=== PATIENT | female | born 1980 | race Caucasian/White ===

== ENCOUNTER 2016-06-22 14:34 | Outpatient (CLI) | payer BC ==
[2016-06-22 15:28] LABS: AMNISURE (ROM) NEGATIVE (NEGATIVE)
[2016-06-22 16:38] LABS: APPEARANCE,URINE CLEAR; BILIRUBIN,URINE NEGATIVE (NEGATIVE); GLUCOSE, URINE NEGATIVE (NEGATIVE); KETONES,URINE NEGATIVE (NEGATIVE); LEUKOCYTE ESTERASE,URINE NEGATIVE (NEGATIVE); NITRITE,URINE NEGATIVE (NEGATIVE); PROTEIN,URINE NEGATIVE (NEGATIVE); URINE SPECIFIC GRAVITY 1.004; UROBILINOGEN,URINE NEGATIVE mg/dL (<2.0)
[2016-06-22 16:51] LABS: URINE BARBITURATES SCREEN NEGATIVE; URINE METHADONE SCREEN NEGATIVE; URINE OPIATES LOW NEGATIVE; URINE PHENCYCLIDINE SCREEN NEGATIVE
== END 2016-06-22 16:34 | disposition home or self-care (01) ==
LOC: LC 14:34
PROVIDERS: ATTEND Student in an Organized Health Care Education/Training Program
PROC: 4A1HXCZ Monitoring of Products of Conception, Cardiac Rate, External Approach (ICD-10-PCS; principal; 2016-06-22)
DX: O09.523 Supervision of elderly multigravida, third trimester (principal); Z3A.34 34 weeks gestation of pregnancy
CPT/HCPCS: 59025; 80307; 81001; 84112; 87210

== ENCOUNTER 2016-06-29 11:40 | Outpatient (CLI) | payer BC | END 2016-06-29 12:15 | disposition home or self-care (01) | LOC: LC 11:40 | PROVIDERS: ATTEND Obstetrics & Gynecology | DX: O36.8130 Decreased fetal movements, third trimester, not applicable or unspecified (principal); Z3A.35 35 weeks gestation of pregnancy | CPT/HCPCS: 59025 ==

== ENCOUNTER 2016-08-05 06:02 | Inpatient (IN) | payer BC ==
[2016-08-05] MEDS ORDERED: RINGERS SOLUTION,LACTATED 300 ML IV ONE (06:19)
[2016-08-05] MEDS ORDERED: OXYTOCIN/NORMAL SALINE 1,000 ML IV PRN (06:19)
[2016-08-05 06:37] LABS: APPEARANCE,URINE SLIGHTLY-CLOUDY; BILIRUBIN,URINE NEGATIVE (NEGATIVE); GLUCOSE, URINE NEGATIVE (NEGATIVE); KETONES,URINE NEGATIVE (NEGATIVE); LEUKOCYTE ESTERASE,URINE TRACE (NEGATIVE); NITRITE,URINE NEGATIVE (NEGATIVE); PROTEIN,URINE NEGATIVE (NEGATIVE); URINE SPECIFIC GRAVITY 1.013; UROBILINOGEN,URINE NEGATIVE mg/dL (<2.0)
[2016-08-05 06:50] LABS: ABSOLUTE EOSINOPHILS # (AUTO) 0.1 10^3/uL (0.0-0.6); ABSOLUTE LYMPHOCYTES (AUTO) 1.6 10^3/uL (0.5-4.7); ABSOLUTE MONOCYTES (AUTO) 0.7 10^3/uL (0.1-1.4); BASOPHILS % (AUTO) 0.3 % (0-2); HEMATOCRIT 37.1 % (36.0-47.0); HEMOGLOBIN 12.2 g/dL (12.0-15.5); HGB HCT DIFFERENCE -0.5; LYMPHOCYTES % (AUTO) 18.6 % (13-45); MEAN CORPUSCULAR HEMOGLOBIN 31.1 pg (27.0-33.4); MEAN CORPUSCULAR HGB CONC 32.9 g/dL (32.0-36.0); MEAN CORPUSCULAR VOLUME 95 fl (80-97); MONOCYTES % (AUTO) 7.8 % (3-13); RED BLOOD COUNT 3.93 10^6/uL (3.72-5.28); SEGMENTED NEUTROPHILS % (AUTO) 72.3 % (42-78); WHITE BLOOD COUNT 8.3 10^3/uL (4.0-10.5)
[2016-08-05 06:51] LABS: URINE BARBITURATES SCREEN NEGATIVE; URINE METHADONE SCREEN NEGATIVE; URINE OPIATES LOW NEGATIVE; URINE PHENCYCLIDINE SCREEN NEGATIVE
[2016-08-05] MEDS ORDERED: PENICILLIN G POTASSIUM 5,000,000 UNIT in DEXTROSE 5%-WATER 100 ML IV ONE (07:00)
[2016-08-05] MEDS ORDERED: OXYTOCIN/NORMAL SALINE 20 UNIT/1,000 ML RTUINJ ONE (07:19)
--- NOTE | 2016-08-05 08:25 | L&D Progress Notes ---
PROGRESS NOTES Datetime Report Generated by CPN: 08/05/2016 08:25 PROGRESS NOTE Impression: Reassuring Heart Rate Impression Other: polyhydramnios Plan: Continue Present Management; Induction Informed Consent Obtained: Vaginal Delivery; Induction of Labor Vital Signs : Reviewed Comment: Comfortable, Cat 1 strip. irreg uc's Comment: 36 yo pt sent from office for possible SROM Phx- anxiety abdomen soft 130s average variability- reactive nst amnisure negative speculum exam - wet prep obtained MEMBRANES Membranes: Intact FETUS A FHR - Baseline: 130 Monitoring: External US Monitoring: External US Variability: Moderate 6-25bpm Accelerations: 15X15 Accelerations: 15X15 FHR Category: Category I : 40.5 Presentation: Vertex SIGNATURE SIGNATURE: [id number];14,[id number] SIGNATURE: [id number] Assignment: Ronaldo Hickey DO Signature: with User ID: [email or web address] : with User ID: [email or web address]
[2016-08-05] MEDS: PENICILLIN G POTASSIUM 2,500,000 UNIT in DEXTROSE 5%-WATER 50 ML IV SCH ×3 (11:00→21:20)
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
[2016-08-05] MEDS ORDERED: PENICILLIN G-K 5 MILLION UNIT VIAL ONE ×3 (13:20→21:15)
[2016-08-05] MEDS ORDERED: EPHEDRINE SULFATE INJ 50 MG/1 ML AMPULE ONE (15:19)
[2016-08-05] MEDS ORDERED: FENTANYL/BUPIVACAINE/NS/PF 200 MCG/100 ML RTUINJ EPI ONE (15:20)
[2016-08-05] MEDS ORDERED: BUPIVACAINE HCL 0.25 % INJ/PF (2.5 MG/1 ML) 30 ML VIAL ONE (15:20)
--- NOTE | 2016-08-05 19:32 | L&D Progress Notes ---
PROGRESS NOTES Datetime Report Generated by CPN: 08/05/2016 19:32 PROGRESS NOTE Impression: Reassuring Heart Rate Procedures: Intrauterine Pressure Catheter Plan: Continue Present Management; Induction Informed Consent Obtained: Vaginal Delivery; Risks, Benefits and Alternatives Discussed Vital Signs : Reviewed Comment: pt doing well after epidural placement FHts reassuring abdomen nontender cervix 4.80/-1 bloody show pitocin at 10 milliunits/min plan of care reviewed anticipate FETUS A FHR - Baseline: 140 Variability: Moderate 6-25bpm Accelerations: 15X15 Decelerations: None FHR Category: Category I FETUS C SIGNATURE: [id number];14,[id number] Assignment: Ronaldo Hickey DO Signature: with User ID: [email or web address] : with User ID: [email or web address]
[2016-08-05] MEDS: RINGERS SOLUTION,LACTATED 1,000 ML IV PRN (21:10)
--- NOTE | 2016-08-05 22:59 | L&D Progress Notes ---
PROGRESS NOTES Datetime Report Generated by CPN: 08/05/2016 22:59 PROGRESS NOTE Comment: update 35 yo here for induction secondary to polyhydramnios EDC 07/31/2016 EGA [address] MVUs 185 noted late decelerations x 2- pt repositioned to left lateral with hiproll +scalp stimulation with accelerations guarded delivery reviewed with pt continue gbs prophylaxis VAGINAL EXAM Dilatation: 6 Effacement: 80 Station: 0 FETUS A FHR - Baseline: 120 Monitoring: External US Variability: Moderate 6-25bpm FETUS C SIGNATURE: [id number];10,[id number] Assignment: Ronaldo Hickey DO Signature: with User ID: [email or web address] : with User ID: [email or web address]
[2016-08-06] MEDS ORDERED: FENTANYL/BUPIVACAINE/NS/PF 200 MCG/100 ML RTUINJ EPI ONE (00:19)
[2016-08-06] MEDS ORDERED: PENICILLIN G-K 5 MILLION UNIT VIAL ONE ×2 (01:07→05:06)
[2016-08-06] MEDS: PENICILLIN G POTASSIUM 2,500,000 UNIT in DEXTROSE 5%-WATER 50 ML IV SCH ×3 (01:11→07:00)
[2016-08-06] MEDS ORDERED: MISOPROSTOL 0.2 MG TABLET ONE (01:49)
[2016-08-06] MEDS ORDERED: OXYTOCIN/NORMAL SALINE 20 UNIT/1,000 ML RTUINJ ONE ×3 (01:49→09:58)
[2016-08-06] MEDS ORDERED: LIDOCAINE 1% INJ-PF (10 MG/ML) 30 ML SDV ONE (01:49)
[2016-08-06] MEDS ORDERED: ONDANSETRON HCL INJ/PF 4 MG/2 ML SDV ONE ×2 (05:55→09:02)
[2016-08-06] MEDS ORDERED: LIDOCAINE 2%/EPINEPHRINE INJ 20 ML VIAL ONE (08:24)
[2016-08-06] MEDS ORDERED: SODIUM BICARBONATE 8.4% INJ 50 MEQ/50 ML DISP.SYRIN ONE (08:25)
[2016-08-06] MEDS ORDERED: CEFAZOLIN 2 GM/D5W RTU 2 GM/50 ML RTUPB IV ONE (08:25)
[2016-08-06] MEDS: RINGERS SOLUTION,LACTATED 1,000 ML IV PRN (08:26)
[2016-08-06] MEDS ORDERED: CEFAZOLIN SODIUM 2 GM in DEXTROSE 5%-WATER 50 ML IV PRN (08:28)
--- NOTE | 2016-08-06 08:31 | L&D Progress Notes ---
PROGRESS NOTES Datetime Report Generated by CPN: 08/06/2016 08:31 PROGRESS NOTE Impression: Arrest of Dilatation/Descent; Non-reassuring Heart Rate Informed Consent Obtained: Section Delivery; Risks, Benefits and Alternatives Discussed Vital Signs : Reviewed Comment: update pt pushing since 0624 capput and molding noted late decelerations o2 via facemask pt repositioned to right lateral reviewed with Dr. low r/b/a reviewed with pt and family FETUS A Monitoring: External US Decelerations: Late FETUS C SIGNATURE: [id number];14,[id number] Assignment: Yina Low MD Signature: with User ID: [email or web address] : with User ID: [email or web address]
[2016-08-06] MEDS ORDERED: CEFAZOLIN 2 GM/D5W RTU 2 GM/50 ML RTUPB IV PRN (08:33)
[2016-08-06] MEDS ORDERED: CITRIC ACID/SODIUM CITRATE ORAL SOLN 15 ML UDCUP ONE (08:37)
[2016-08-06] MEDS ORDERED: FENTANYL CITRATE INJ/PF 100 MCG/2 ML AMPUL ONE (08:52)
[2016-08-06] MEDS ORDERED: OXYTOCIN 10 UNIT/ML VIAL ONE (08:52)
[2016-08-06] MEDS ORDERED: MIDAZOLAM 2 MG/2 ML INJ ONE ×2 (08:53→09:36)
[2016-08-06] MEDS ORDERED: MORPHINE SULFATE 10 MG/ML INJ ONE (08:53)
[2016-08-06] MEDS ORDERED: PENICILLIN G-K 5 MILLION UNIT VIAL IV SCH (09:00)
[2016-08-06] MEDS ORDERED: METHYLERGONOVINE MALEATE INJ/PF 0.2 MG/1 ML AMPULE ONE (09:21)
[2016-08-06] MEDS ORDERED: MORPHINE SULFATE 10 MG/ML INJ IV PRN ×3 (10:20→20:06)
[2016-08-06] MEDS ORDERED: DIPHENHYDRAMINE HCL 50 MG/ML VIAL IV PRN (10:20)
[2016-08-06] MEDS ORDERED: PROMETHAZINE HCL INJ 25 MG/1 ML VIAL IV PRN ×3 (10:20→10:44)
[2016-08-06] MEDS ORDERED: FENTANYL CITRATE INJ/PF 100 MCG/2 ML AMPUL IV PRN ×3 (10:20)
--- NOTE | 2016-08-06 10:24 | OPERATIVE REPORT E ---
Operative Report NAME: NORMA PATTERSON : 1980 AGE: 35Y DATE OF SURGERY: ROOM: LR200 PREOPERATIVE DIAGNOSES: 1. IUP at 40 weeks and 6 days. 2. Failure to progress. 3. Nonreassuring heart tones. POSTOPERATIVE DIAGNOSES: 1. IUP at 40 weeks and 6 days. 2. Failure to progress. 3. Nonreassuring heart tones. 4. Asynclitic lay. FINDINGS: A female infant with a right temporal presentation, Apgars of 9 and 9, weight 8 pounds 15 ounces. ESTIMATED BLOOD LOSS: 600 mL. SPECIMENS REMOVED: None. PROCEDURE: A low transverse hysterotomy section. SURGEON: MINNIE ZHANG M.D. ANESTHESIA: Dr. Levy with a spinal. PROCEDURE IN DETAIL: The patient was taken to the Operating Room, prepared and draped in the normal sterile fashion in the supine position with a leftward tilt. A transverse skin incision was made with a scalpel and carried through to the underlying layer of fascia with the same scalpel, the fascia was excised in the midline and extended laterally with Mayos. The fascia was then dissected sharply from the rectus muscles using Mayos. The rectus muscle was divided. The peritoneal cavity was entered bluntly with surgeon finger fracture. With good visualization of the bladder and the uterus, the bladder blade was inserted and the hysterotomy was nicked with a scalpel and extended laterally with surgeon finger fracture. Attempted to grasp of the head was difficult due to it being wedged in the pelvis. Vaginal hand was then asked for. The nurse assisted with the vaginal hand bringing the back up into the peritoneal cavity and into the uterus better. It was able to then grasp the fetus and noted that the fetus had actually been in an asynclitic lay at this point. The head was then flexed slightly to accommodate the malpositioning and the was then delivered without further difficulty. The nose and mouth were suctioned with a suction bulb and the cord was then clamped and cut, and the was handed off to the waiting pediatricians. The cord blood was collected and the placenta was removed manually. The uterus was exteriorized and cleared of clots and debris. The hysterotomy was closed with 0 Monocryl in a running locked fashion. A second layer of the same suture was used to imbricate, to make sure of hemostasis. The uterus was then returned to the abdomen. The peritoneal cavity was cleared of clots and debris. The hysterotomy was reinspected and found to be hemostatic. The peritoneum and the rectus muscles were reapproximated with a mattress stitch of 2-0 chromic. The fascia was closed with 0 Vicryl. The subcutaneous layer was closed with plain catgut and the skin was closed with 4-0 Vicryl. The patient tolerated the procedure well. The sponge, lap and needle counts were correct x2 and the patient was taken to recovery in stable condition. DICTATING PHYSICIAN: MINNIE ZHANG M.D. [id number] PHY#: [id number] ID: [id number] JOB#: [id number] ACCT: [id number] cc:MINNIE ZHANG M.D. >
[2016-08-06] MEDS: MEPERIDINE HCL/PF INJ 25 MG/1 ML DISP.SYRIN IV PRN ×2 (10:39→11:15)
[2016-08-06] MEDS ORDERED: MEPERIDINE HCL/PF INJ 25 MG/1 ML DISP.SYRIN ONE (10:39)
[2016-08-06] MEDS ORDERED: OXYCODONE-ACETAMINOPHEN 5-325 MG TABLET PO PRN ×3 (10:44→20:11)
[2016-08-06] MEDS ORDERED: RINGERS SOLUTION,LACTATED 1,000 ML IV PRN ×2 (10:44→20:14)
[2016-08-06] MEDS ORDERED: ACETAMINOPHEN 100 ML IV PRN (10:44)
[2016-08-06] MEDS ORDERED: MEASLES,MUMPS&RUBELLA VACC/PF 0.5 ML VIAL SUBCUT PRN ×2 (10:44→20:18)
[2016-08-06] MEDS ORDERED: SIMETHICONE 80 MG TAB.CHEW PO PRN ×2 (10:44→20:12)
[2016-08-06] MEDS ORDERED: ACETAMINOPHEN 325 MG TABLET PO PRN ×2 (10:44→20:08)
[2016-08-06] MEDS ORDERED: DIPH/PERTUSS(ACELL)/TETANUS VAC/PF 0.5 ML SYR (>=10YO) IM PRN ×2 (10:44→20:18)
[2016-08-06] MEDS ORDERED: FLUCONAZOLE 100 MG TABLET PO SCH (11:00)
[2016-08-06] MEDS ORDERED: KETOROLAC TROMETHAMINE INJ/PF 30 MG/1 ML SDV IV SCH (11:00)
[2016-08-06] MEDS: OXYTOCIN/NORMAL SALINE 1,000 ML IV PRN ×2 (11:14→11:15)
[2016-08-06] MEDS ORDERED: ACETAMINOPHEN 100 ML IV ONE ×2 (11:21→19:30)
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
[2016-08-06] MEDS ORDERED: AMPICILLIN SOD/SULBACTAM 3 GM VIAL IV SCH (14:00)
[2016-08-06] MEDS ORDERED: AMPICILLIN SODIUM/SULBACTAM NA 3 GM in NORMAL SALINE 100 ML IV ONE (15:00)
--- NOTE | 2016-08-06 15:21 | Delivery Summary ---
Del Sum A-C Datetime Report Generated by [facility]: 08/06/2016 15:21 DELIVERY PERSONNEL DELIVERY PERSONNEL: [id number];[id number];10,[id number] DELIVERY PERSONNEL: 10,[id number];14,[id number] DELIVERY PERSONNEL: 14,[id number];10,[id number] DELIVERY PERSONNEL: [id number];14,[id number] DELIVERY PERSONNEL: [id number];10,[id number] DELIVERY PERSONNEL: 10,[id number];14,[id number] DELIVERY PERSONNEL: [id number] Delivery Doctor:: Yina Sanders MD Anesthesiologist:: Anaya Levy MD Labor and Delivery Nurse:: Mary Rubio RN Neonatal Nurse Practitioner:: GROVER Lee Stacker Tender/PERFORATOR TYPIST: ST Woody Stacker Tender/PERFORATOR TYPIST: Devorah Galan [employer]AGE SALES CONSULTANT MATERNAL INFORMATION Medications After Delivery: Pitocin Bolus-Please Comment; Pitocin Drip 20 Units/1000ml NSS Maternal Complications: Prolonged Second Stage > 2 Hrs LABOR SUMMARY EDC: 07/31/2016 00:00 No. Babies in Womb: 1 Attempted: No Labor Anesthesia: Epidural LABOR INFORMATION Reason for Induction: Post Dates Onset of Labor: 08/05/2016 15:30 Complete Dilatation: 08/06/2016 05:47 Oxytocin: Induction Group B Beta Strep: Positive Antibiotics # of Doses: 5 Antibiotics Time of Last Dose: 515 Name of Antibiotic Given: PCN Steroids Given: None Reason Steroids Not Administered: Not Applicable MEMBRANES Membranes Rupture Method: Artificial Rupture of Membranes: 08/05/2016 13:02 Length of Rupture (hr): 20.18 Amniotic Fluid Color: Clear Amniotic Fluid Amount: Moderate Amniotic Fluid Odor: Normal STAGES OF LABOR Stage 1 hr: 14 Stage 1 min: 17 Stage 2 hr: 3 Stage 2 min: 26 Stage 3 hr: 0 Stage 3 min: 1 Total Time in Labor hr: 17 Total Time in Labor min: 44 VAGINAL DELIVERY Episiotomy: None Laceration Extension: N/A Laceration Type: None Laceration Repair: Not Applicable Sponge Count Correct: N/A Sharps Count Correct: N/A CSECTION DELIVERY Primary Indication: Nonreassuring Status Secondary Indication: Arrest of Descent CSection Urgency: Non-Scheduled CSection Incidence: Primary Labor: Labor Elective: Nonelective CSection Incision: Lower Uterine Transverse BABY A INFORMATION Infant Delivery Date/Time: 08/06/2016 09:13 Method of Delivery: Born in Route : No : N/A Forceps: N/A Vacuum Extraction: N/A Shoulder Dystocia : No PRESENTATION/POSITION BABY A Presentation: Cephalic Cephalic Presentation: Vertex Vertex Position: Left Occipital Posterior Breech Presentation: N/A PLACENTA INFORMATION BABY A Placenta Delivery Time : 08/06/2016 09:14 Placenta Method of Delivery: Manual Removal Placenta Status: Delivered SCORES BABY A Heart Rate 1 min: >100 bpm Resp Effort 1 min: Good Cry Reflex Irritability 1 min: Cough or Sneeze or Pulls Away Muscle Tone 1 min: Active Motion Color 1 min: Blue/Pale Resuscitation Effort 1 min: Tactile Stimulation SCORE 1 MIN: 8 Heart Rate 5 min: >100 bpm Resp Effort 5 min: Good Cry Reflex Irritability 5 min: Cough or Sneeze or Pulls Away Muscle Tone 5 min: Active Motion Color 5 min: Body [place], Extremities Blue Resuscitation Effort 5 min: Tactile Stimulation SCORE 5 MIN: 9 INFANT INFORMATION BABY A Gestational Age at Delivery: 40.6 Gestational Status: Full Term- 39- 40.6 Weeks Infant Outcome : Liveborn Infant Condition : Stable Sex: Female IDENTIFICATION BABY A Verification Date/Time: 08/06/2016 09:14 ID Band Number: [id number] Mother's Name Verified: Yes RN Verifying : Adriana Rubio RN Additional Verifying Personnel: Jeana Calix RN WEIGHT/LENGTH BABY A Infant Birthweight (gm): 4040 Weight (lb): 8 Weight (oz): 15 Infant Length (in): 22.00 Length (cm): 55.88 CORD INFORMATION BABY A No. Cord Vessels: 3 Nuchal Cord : N/A Cord Blood Taken: Yes-For Eval (Mom's Blood Type - or O+) Suction: Mouth; Nose ASSESSMENT BABY A Infant Complications: Meconium Physical Findings at Delivery: Caput Succedaneum; Molding of the Head Respirations: Appears Normal Skin to Skin: Yes Skin to Skin Time (min): 90 Laboratory Phlebotomist/ALS Called : No Care By: Jeana Calix RN Transferred To: Nursery BABY B INFORMATION : N/A
[2016-08-06] MEDS ORDERED: DOCUSATE SODIUM 100 MG CAPSULE PO SCH (18:00)
[2016-08-06] MEDS ORDERED: PROMETHAZINE HCL INJ 25 MG/1 ML VIAL IM PRN (20:18)
[2016-08-06] MEDS: OXYCODONE-ACETAMINOPHEN 5-325 MG TABLET PO PRN (20:43)
[2016-08-06] MEDS ORDERED: KETOROLAC TROMETHAMINE INJ/PF 30 MG/1 ML SDV IV ONE (22:00)
[2016-08-06] MEDS: AMPICILLIN SODIUM/SULBACTAM NA 3 GM in NORMAL SALINE 100 ML IV SCH (22:07)
[2016-08-06] MEDS: DOCUSATE SODIUM 100 MG CAPSULE PO SCH (23:57)
[2016-08-07] MEDS: OXYCODONE-ACETAMINOPHEN 5-325 MG TABLET PO PRN ×4 (04:10→23:23)
[2016-08-07] MEDS: IBUPROFEN 800 MG TABLET PO SCH ×4 (05:47→23:24)
[2016-08-07] MEDS: AMPICILLIN SODIUM/SULBACTAM NA 3 GM in NORMAL SALINE 100 ML IV SCH (05:47)
[2016-08-07] MEDS ORDERED: PRENATAL VITAMIN W-O CA NO5/FE FUMARATE/FA CAPSULE PO SCH (10:00)
[2016-08-07] MEDS: PRENATAL VITAMIN W-O CA NO5/FE FUMARATE/FA CAPSULE PO SCH (10:23)
[2016-08-07] MEDS: DOCUSATE SODIUM 100 MG CAPSULE PO SCH ×2 (10:23→21:55)
--- NOTE | 2016-08-07 11:34 | PDOC PROGRESS REPORT ---
Subjective-OB Subjective: Post Delivery Day: 35 year old. Denies any needs at this time Physical Exam (OB) Vital Signs: Temp Pulse Resp BP Pulse Ox 98.3 F 79 15 99/52 L 97 08/07/16 07:34 08/07/16 07:34 08/07/16 07:34 08/07/16 07:34 08/07/16 07:34 Intake & Output 08/06/16 08/07/16 08/08/16 06:59 06:59 06:59 Output Total 1650 Balance -1650 Weight 91.05 kg - Dressing Removed: No Incision: Well Approximated Closure Type: Surgical Glue - Lochia Lochia Amount: Scant < 10 ml Lochia Color: Rubra/Red - Abdomen Description: Tender, Soft, Flat Hernia Present: No Bowel Sounds: Normoactive Flatus Presence: Absent Stool: No Fundal Description: Firm, Midline Fundal Height: u/u - u/2 Objective-Diagnostic Laboratory: 08/05/16 06:30
[2016-08-07] MEDS ORDERED: IBUPROFEN 800 MG TABLET PO SCH (12:00)
[2016-08-07 12:04] LABS: ABSOLUTE EOSINOPHILS # (AUTO) 0.1 10^3/uL (0.0-0.6); ABSOLUTE LYMPHOCYTES (AUTO) 1.2 10^3/uL (0.5-4.7); ABSOLUTE MONOCYTES (AUTO) 0.8 10^3/uL (0.1-1.4); BASOPHILS % (AUTO) 0.1 % (0-2); EOSINOPHILS % (AUTO) 0.4 % (0-6); HEMATOCRIT 32.7 % (36.0-47.0); HEMOGLOBIN 10.7 g/dL (12.0-15.5); HGB HCT DIFFERENCE -0.6; LYMPHOCYTES % (AUTO) 8.1 % (13-45); MEAN CORPUSCULAR HEMOGLOBIN 31.4 pg (27.0-33.4); MEAN CORPUSCULAR HGB CONC 32.6 g/dL (32.0-36.0); MEAN CORPUSCULAR VOLUME 96 fl (80-97); MONOCYTES % (AUTO) 5.6 % (3-13); RED CELL DISTRIBUTION WIDTH 18.7 % (11.5-14.0); SEGMENTED NEUTROPHILS % (AUTO) 85.8 % (42-78); WHITE BLOOD COUNT 15.1 10^3/uL (4.0-10.5)
[2016-08-07] MEDS: FLUCONAZOLE 100 MG TABLET PO SCH (12:46)
[2016-08-08] MEDS: IBUPROFEN 800 MG TABLET PO SCH ×2 (05:44→12:52)
[2016-08-08] MEDS: FLUCONAZOLE 100 MG TABLET PO SCH (08:47)
[2016-08-08] MEDS: PRENATAL VITAMIN W-O CA NO5/FE FUMARATE/FA CAPSULE PO SCH (08:47)
[2016-08-08] MEDS: DOCUSATE SODIUM 100 MG CAPSULE PO SCH (08:47)
[2016-08-08] MEDS: OXYCODONE-ACETAMINOPHEN 5-325 MG TABLET PO PRN (08:48)
--- NOTE | 2016-08-08 12:01 | PDOC PROGRESS REPORT ---
Subjective-OB Subjective: Post Delivery Day: 35 year old. Denies any needs at this time. Ready to go home. Physical Exam (OB) Vital Signs: Temp Pulse Resp BP Pulse Ox 97.6 F 70 16 111/57 L 98 08/08/16 07:54 08/08/16 07:54 08/08/16 07:54 08/08/16 07:54 08/08/16 07:54 Intake & Output 08/07/16 08/08/16 08/09/16 06:59 06:59 06:59 Output Total 1650 Balance -1650 - Dressing Removed: No - opsite Incision: Well Approximated Closure Type: Surgical Glue - Lochia Lochia Amount: Small 10-25 ml Lochia Color: Rubra/Red - Abdomen Description: Soft Hernia Present: No Bowel Sounds: Normoactive Flatus Presence: Present Stool: No Fundal Description: Firm, Midline Fundal Height: u/u - u/2 Objective-Diagnostic Laboratory: 08/07/16 11:52 08/07/16 11:52 WBC 15.1 H RBC 3.40 L Hgb 10.7 L Hct 32.7 L MCV 96 MCH 31.4 MCHC 32.6 RDW 18.7 H Plt Count 197 Seg Neutrophils % 85.8 H Lymphocytes % 8.1 L Monocytes % 5.6 Eosinophils % 0.4 Basophils % 0.1 Absolute Neutrophils 13.0 H Absolute Lymphocytes 1.2 Absolute Monocytes 0.8 Absolute Eosinophils 0.1 Absolute Basophils 0.0
[2016-08-08 12:05] VITALS: BP 118/66
--- NOTE | 2016-08-08 12:12 | PDOC DISCHARGE SUMMARY ---
Final Diagnosis Discharge Date: 08/08/16 - Final Diagnosis (1) AMA (advanced maternal age) primigravida 35+ Is this a current diagnosis for this admission?: Yes (2) Delivery by emergency caesarean section Is this a current diagnosis for this admission?: Yes (3) Depression Is this a current diagnosis for this admission?: Yes (4) History of ISELA positive for HSV Is this a current diagnosis for this admission?: Yes (5) Positive GBS test Is this a current diagnosis for this admission?: Yes (6) Is this a current diagnosis for this admission?: Yes (7) Prolonged second stage (of labor) Is this a current diagnosis for this admission?: Yes Discharge Data - Discharge Medication Home Medications: Bupropion HCl [Wellbutrin Xl 150 mg 24hr Tablet] 1 tab PO DAILY 06/22/16 Vit W-Ca,Fe,FA(<1 mg) [ Vitamins] 1 tab PO DAILY 06/22/16 Docusate Sodium [Colace 100 mg Capsule] 1 cap PO PRN PRN #0 capsule 08/08/16 Docusate Sodium [Colace 100 mg Capsule] 100 mg PO Q12 #30 capsule 08/08/16 Ibuprofen [Motrin 800 mg Tablet] 800 mg PO Q6 #30 tablet 08/08/16 Oxycodone HCl/Acetaminophen [Percocet 5-325 mg Tablet] 1 tab PO Q4HP PRN #20 tablet 08/08/16 Gestational Age: 40.6 wks Reason(s) for Admission: Induction of Labor, Other Admission Note: Polyhydramnios Procedures: Ultrasound Intrapartum Procedure(s): : Low Cervical, Transverse - Seibert Data Baby 1 Female at 1 minute: 8 at 5 minutes: 9 Weight: 4.054 kg Home with Mother: Yes Complications: No - Diagnosis Test Laboratory: Temp Pulse Resp BP Pulse Ox 97.8 F 63 16 118/66 99 08/08/16 11:23 08/08/16 11:23 08/08/16 11:23 08/08/16 11:23 08/08/16 11:23 08/05/16 08/05/16 08/07/16 06:15 06:30 11:52 RBC 3.93 3.40 L Hgb 12.2 10.7 L Hct 37.1 32.7 L Urine Opiates Screen NEGATIVE - Discharge information/Instructions Discharge Activity: Activity As Tolerated, Balance Activity w/Rest, No Lifting Over 10 Pounds, No Lifting/Push/Pulling, Pelvic Rest, Slowly Increase Activity, No tub bath Discharge Diet: Regular Disposition: HOME, SELF-CARE Follow up with: [facility] in: 1, Weeks
== END 2016-08-08 14:30 | disposition home or self-care (01) | DRG 765 ==
LOC: LR 06:02 → 2N 08-06 12:00
PROVIDERS: ADMIT Obstetrics & Gynecology; ATTEND Obstetrics & Gynecology
PROC: 10H00YZ Insertion of Other Device into Products of Conception, Open Approach (ICD-10-PCS; 2016-08-05)
PROC: 4A1H7CZ Monitoring of Products of Conception, Cardiac Rate, Via Natural or Artificial Opening (ICD-10-PCS; 2016-08-05)
PROC: 10D00Z1 Extraction of Products of Conception, Low, Open Approach (ICD-10-PCS; principal; 2016-08-06)
DX: O62.2 Other uterine inertia (principal); O98.32 Other infections with a predominantly sexual mode of transmission complicating childbirth; O63.1 Prolonged second stage (of labor); O76 Abnormality in fetal heart rate and rhythm complicating labor and delivery; O77.0 Labor and delivery complicated by meconium in amniotic fluid; O40.3XX0 Polyhydramnios, third trimester, not applicable or unspecified; O99.344 Other mental disorders complicating childbirth; O99.824 Streptococcus B carrier state complicating childbirth; F41.9 Anxiety disorder, unspecified; A60.00 Herpesviral infection of urogenital system, unspecified; Z3A.40 40 weeks gestation of pregnancy; O48.0 Post-term pregnancy; Z37.0 Single live birth
CPT/HCPCS: 1961; 36415; 80307; 81005; 85025; 86592; 86850; 86900; 86901; 94760; 94799; J0131; J0295; J0690; J1885; J2175; J2210; J2250; J2270; J2405; J2540; J2590; J3010; J3490; J7120

== ENCOUNTER → 2017-06-10 | Outpatient (CLI) | payer BC ==
--- NOTE | 2017-06-10 12:32 | RADIOLOGY REPORT (SQ) ---
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 TECHNIQUE: Rightknee images acquired and stored on PACS. Multiplanar images include fat sensitive s equences as T1, water sensitive sequences as FST2 or STIR, cartilage sensitive sequences as FSPD, and gradient echo sequences. LIMITATIONS: None. FINDINGS: JOINT AND BURSAE: Small effusion. BONE CORTEX AND MARROW: No alteration of signal to suggest marrow replacement. No worrisome bone lesi ons. No occult fracture. ACL: Intact. No degeneration or ganglion cyst. PCL: Intact. MCL: Intact. No periligamentous edema or fluid. LCL: Intact. No periligamentous edema or fluid. MEDIAL MENISCUS: No tears. No abnormal signal. LATERAL MENISCUS: No tears. No abnormal signal. MEDIAL COMPARTMENT: Cartilage thinning. Small osteophytes femoral condyle. LATERAL COMPARTMENT: Cartilage preserved. No bone bruises or reactive marrow edema. No osteophytes. PATELLA: Thinning of the patellar cartilage. Lateral patellar tilt. Shallow trochlea. Intact retin aculum. EXTENSOR MECHANISM: Intact. Quadriceps and patella tendons normal. SOFT TISSUES: Adjacent muscles and subcutaneous tissues normal. Normal flow void in popliteal artery and vein. OTHER: No other significant finding. IMPRESSION: 1. Lateral patellar tilt and shallow trochlea consistent with clinical history. There is thinning of the patellar cartilage but no focal osteochondral defect. 2. Small effusion. 3. Mild osteoarthritic changes in the medial compartment. TECHNICAL DOCUMENTATION: JOB ID: [id number] All Rights Reserved Reading location - IP/workstation name: [email or web address]
== END ==
LOC: RAD 09:17
PROVIDERS: ATTEND Orthopaedic Surgery
DX: M22.2X1 Patellofemoral disorders, right knee (principal)

== ENCOUNTER → 2017-07-15 | Outpatient (CLI) | payer BC ==
--- NOTE | 2017-07-15 18:47 | RADIOLOGY REPORT (SQ) ---
EXAM DESCRIPTION: U/S ABDOMEN LIMITED W/O DOP COMPLETED DATE/TIME: 07/15/2017 6:18 pm REASON FOR STUDY: [place] [facility] EVAL HERNIA COMPARISON: None. TECHNIQUE: Dynamic and static grayscale images acquired of the localized site of clinical concern an d recorded on PACS. Additional selected color Doppler and spectral images recorded. SITE OF CONCERN: Abdominal wall adjacent to the umbilicus. LIMITATIONS: None. FINDINGS: No soft tissue mass. No hernia visualized. IMPRESSION: NO SIGNIFICANT SONOGRAPHIC FINDINGS. NO HERNIA VISUALIZED. TECHNICAL DOCUMENTATION: JOB ID: [id number] [employer]- All Rights Reserved Reading location - IP/workstation name: [email or web address]
== END ==
LOC: RAD 15:10
PROVIDERS: ATTEND Emergency Medicine
DX: R19.05 Periumbilic swelling, mass or lump (principal)
CPT/HCPCS: 76705

== ENCOUNTER 2017-08-25 08:28 | Day surgery (SDC) | payer BC ==
[2017-08-18 09:36] LABS: HEMATOCRIT 40.9 % (36.0-47.0); HEMOGLOBIN 13.9 g/dL (12.0-15.5); MEAN CORPUSCULAR VOLUME 94 fl (80-97); PLATELET COUNT 296 10^3/uL (150-450); RED BLOOD COUNT 4.34 10^6/uL (3.72-5.28); WHITE BLOOD COUNT 5.3 10^3/uL (4.0-10.5)
[2017-08-18 09:50] LABS: APPEARANCE,URINE SLIGHTLY-CLOUDY; BILIRUBIN,URINE NEGATIVE (NEGATIVE); COLOR,URINE YELLOW; GLUCOSE, URINE NEGATIVE (NEGATIVE); KETONES,URINE NEGATIVE (NEGATIVE); LEUKOCYTE ESTERASE,URINE TRACE (NEGATIVE); NITRITE,URINE NEGATIVE (NEGATIVE); PROTEIN,URINE NEGATIVE (NEGATIVE); UROBILINOGEN,URINE NEGATIVE mg/dL (<2.0)
[2017-08-18 09:57] LABS: ANION GAP 10 (5-19); BLOOD UREA NITROGEN 11 mg/dL (7-20); CALCIUM 9.6 mg/dL (8.4-10.2); CARBON DIOXIDE 27 mmol/L (22-30); CHLORIDE 106 mmol/L (98-107); GLUCOSE 78 mg/dL (75-110); POTASSIUM 4.8 mmol/L (3.6-5.0)
[~2017-08-25 08:28] MED LIST: BUPIVACAINE HCL 0.5 % INJ/PF 30 ML SDV ONE; CEFAZOLIN 2 GM/D5W RTU 2 GM/50 ML RTUPB IV PRN; LACTATED RINGERS 1000 ML IV PRN
[2017-08-25] MEDS ORDERED: MIDAZOLAM 2 MG/2 ML INJ ONE (09:17)
[2017-08-25] MEDS ORDERED: FENTANYL CITRATE INJ/PF 100 MCG/2 ML AMPUL ONE (09:17)
[2017-08-25] MEDS ORDERED: ACETAMINOPHEN 1,000 MG/100 ML RTUPB IV ONE (09:17)
[2017-08-25] MEDS ORDERED: PROPOFOL INJ 200 MG/20 ML VIAL IV ONE (09:17)
[2017-08-25] MEDS ORDERED: MORPHINE SULFATE 10 MG/ML INJ ONE (09:18)
[2017-08-25] MEDS ORDERED: FAMOTIDINE INJ/PF 20 MG/2 ML SDV IV ONE (09:57)
[2017-08-25] MEDS ORDERED: SCOPOLAMINE HYDROBROMIDE 1.5 MG PATCH.TD72 TD PRN (09:59)
[2017-08-25] MEDS ORDERED: RINGERS SOLUTION,LACTATED 500 ML IV PRN (10:00)
[2017-08-25] MEDS ORDERED: RINGERS SOLUTION,LACTATED 1,000 ML IV PRN (10:00)
[2017-08-25] MEDS ORDERED: PROMETHAZINE HCL INJ 25 MG/1 ML VIAL IV PRN ×2 (11:12)
[2017-08-25] MEDS ORDERED: MORPHINE SULFATE 10 MG/ML INJ IV PRN (11:12)
[2017-08-25] MEDS ORDERED: FENTANYL CITRATE INJ/PF 100 MCG/2 ML AMPUL IV PRN ×3 (11:12)
[2017-08-25] MEDS ORDERED: MEPERIDINE HCL/PF INJ 25 MG/1 ML DISP.SYRIN IV PRN (11:12)
[2017-08-25] MEDS ORDERED: DIPHENHYDRAMINE HCL 50 MG/ML VIAL IV PRN (11:12)
--- NOTE | 2017-08-25 12:29 | Discharge Summary ---
Discharge Summary (SDC) - Discharge Final Diagnosis: Status post right knee chondroplasty of all 3 compartments and lateral release Date of Surgery: 08/25/17 Discharge Date: 08/25/17 Condition: Good Treatment or Instructions: Patient instructed to follow up in 10-14 days. Patient instructed to keep dressing dry clean and intact for 4 days and then allowed to remove. At that point patient can shower and apply Band-Aids as needed. Patient can weight-bear as tolerated and do range of motion exercises as tolerated. Crutches for support and safety. Can wean crutches once stable on his feet. Patient instructed to call the office if patient develops fevers chills redness and drainage from the surgical sites. Prescriptions: Hydrocodone/Acetaminophen [[place] 5-325 Tablet] 1 - 2 tab PO ASDIR PRN #30 tab PRN Reason: Referrals: BRENDA ARIAS MD [Primary Care Provider] - Discharge Diet: As Tolerated Respiratory Treatments at Home: Deep Breathing/Coughing Discharge Activity: No Driving, No Lifting/Push/Pulling, Slowly Increase Activity, Walk Frequently Home Care Assistance: None Needed Adaptive Devices on Discharge: Axillary Crutches - as needed Report the Following to Your Physician Immediately: Shortness of Breath, Vomiting, Increase in Pain, Fever over 101 Degrees, Unusual Bleeding, Redness, Swelling, Warmth, Increased Soreness, Drainage-Yellow, Drainage-Garner, Drainage- Green, Drainage-Foul Smelling
[2017-08-25] MEDS ORDERED: OXYCODONE HCL IR 5 MG TABLET PO PRN ×2 (12:30→12:55)
[2017-08-25] MEDS ORDERED: METOCLOPRAMIDE HCL INJ/PF 10 MG/2 ML SDV ONE (12:35)
[2017-08-25] MEDS ORDERED: DEXAMETHASONE SOD PHOSPHATE INJ 4 MG/1 ML VIAL ONE (14:40)
[2017-08-25] MEDS ORDERED: ONDANSETRON HCL INJ/PF 4 MG/2 ML SDV ONE (14:40)
[2017-08-25 14:52] VITALS: BP 119/84
--- NOTE | 2017-08-28 10:27 | Operative Report ---
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 Arthroscopic lateral release SURGEON: MYRON BERRIOS ANESTHESIA: GA TISSUE REMOVED OR ALTERED: None COMPLICATIONS: None ESTIMATED BLOOD LOSS: Less than 20 mL INTRAOPERATIVE FINDINGS: As above PROCEDURE: Patient received preoperative antibiotics and then was taken to the operating room where she was induced and received general anesthetic successfully. The tourniquet was applied to the right lower extremity and right lower extremity was prepped and draped in a normal sterile surgical fashion. Timeout was done identifying the right knee at the correct site. Esmarch was used then to exsanguinate the extremity and the tourniquet was inflated at 300 mmHg. Quarter percent Marcaine was injected in the 2 anticipated portal sites. 11 blade was used to status at all portal. Scope was introduced and camera was placed and the knee was distended with sterile saline solution. Under direct visualization I was able to use a spinal needle to visualize the portal and then used 11 blade to establish. Probe was introduced and immediately noted on the patellofemoral compartment especially on the lateral facet. Patient had grade 3 changes of the patella and grade 2 changes of the femoral trochlea. I then proceeded to place the scope and camera into the medial compartment and surprising saw chondromalacia grade 2 of the femoral trochlea which was diffuse in nature. The tibial plateau was intact and the meniscus was intact. ACL and PCL was visualized and deemed intact. I placed the leg in a [id number] noted the patient had chondromalacia of the lateral femoral condyle grade 2 and 3 as well. The lateral meniscus was intact and the trochlea only had grade 1 changes. At this point I use a 4.0 mm shaver and proceeded to do chondroplasty of the patella, trochlea, medial femoral condyle, lateral femoral condyle. Once I was happy with the resection and the stable remaining cartilage I then used the radiofrequency ablator to do my lateral release. Did under direct visualization was made sure that I was all way up to the musculature and down close to the portal site. I felt tracking was improved and unloading the lateral facet which was worn compared to the medial facet which was pristine. Once the lateral release was done and we proceeded to remove the fluid from the knee and close my 2 portal sites with 3-0 nylon. I applied Xeroform 4 x 4 dressing followed by soft roll and Ruben bandage. Tourniquet was let down and the drapes were removed. Patient was sent to PACU in stable condition.
== END 2017-08-25 14:30 | disposition home or self-care (01) ==
LOC: OROUT 08:28
PROVIDERS: ATTEND Orthopaedic Surgery
DX: M22.41 Chondromalacia patellae, right knee (principal); M22.2X1 Patellofemoral disorders, right knee; Z91.040 Latex allergy status
CPT/HCPCS: 36415; 85027; 81025; 80048; 81001; 29873; J2250; J3490; J1100; J3010; J2765; J2270; J2550; J2405; J2704; S0028; J0690; J0131; 1400